=== PATIENT | male | born 1970 | race Caucasian/White ===

== ENCOUNTER 2019-10-30 17:55 | Emergency (ER) | payer OTHER, SELFPAY ==
--- NOTE | 2019-10-30 17:59 | WPDEDEXPGENP ---
HPI - General Ped General Chief complaint: Extremity Injury, Lower Stated complaint: R/foot swollen Time Seen by Provider: 10/30/19 18:10 Source: patient and RN notes reviewed Mode of arrival: ambulatory Limitations: no limitations Nursing Documentation: reviewed/agree History of Present Illness HPI narrative: 49-year-old male presents with concern for swollen, tender right foot without injury. Reports history of gout in his right ankle and foot. Reports symptoms felt like his typical gout symptoms approximately 2 to 3 days ago, he tried at home remedies with no relief. Reports swelling, pain, tenderness is moved from his ankle to his foot. Denies any fever, general malaise MD complaint: Swollen foot Related Data Home Medications Medication Instructions Recorded Confirmed amitriptyline 10/30/19 atenolol 10/30/19 lisinopril-hydrochlorothiazide 10/30/19 Allergies Allergy/AdvReac Type Severity Reaction Status Date / Time Penicillins Allergy Intermediate Nausea and Verified 04/22/19 16:47 Vomiting Pediatric Review of Systems : Review of Systems: CONSTITUTIONAL: Denies malaise, chills, sweats, or fever. CARDIOVASCULAR: Denies chest pain, palpitations RESPIRATORY: Denies cough or dyspnea. SKIN: Reports swollen, tender right foot and ankle MUSCULOSKELETAL: Reports right foot and ankle pain and swelling NEUROLOGIC: Denies numbness, weakness. All systems ED: reviewed and negative except as stated PMFSH Comments At time of signature, agree with nursing past medical, surgical, social and family history. There is no relevant family history pertinent to the presenting complaint Pediatric Exam Narrative: Physical exam: GENERAL: Well-appearing, well-nourished, and in no acute distress. HEAD: Normocephalic EYES: PERRLA, conjunctivae clear NECK: Supple. CHEST: Speaks in full sentences. No respiratory distress. HEART: Regular rate and rhythm. Normal and equal peripheral pulses. EXTREMITIES: Right ankle, foot, digits of foot has normal strength and sensation, normal range of motion. 5/5 strength with ankle and digit flexion and extension. Normal sensation with sensitivity to light touch and pain. Edema, tenderness noted to right lateral ankle, dorsal aspect of foot, not involving digits, consistent with gout no open wounds, no skin tenting, no devitalized tissue or atrophy, no trophic changes, no ecchymosis, no obvious deformity, alignment normal, no point tenderness, nearby joints and structures intact. Distal pulses palpable and equal bilaterally, skin warm, dry, pink. Capillary refill less than 3 seconds. SKIN: Warm, dry, no rash. NEURO: Alert and oriented x3. PSYCH: Normal mood and affect General: Limitations: no limitations Course Course Emergency Course: Parent understands and agrees to treatment plan. Anticipatory guidance given. Parent agrees to follow-up as directed and understands reasons follow-up with primary care provider or to go the emergency room Portions of this record may have been created with voice recognition software Vital Signs Vital signs: Vital Signs Temperature 98.1 F 10/30/19 18:07 Pulse Rate 99 10/30/19 18:07 Respiratory Rate 18 10/30/19 18:07 Blood Pressure 134/100 H 10/30/19 18:07 Pulse Oximetry 99 10/30/19 18:07 Temperature 98.1 F 10/30/19 18:07 Pulse Rate 99 10/30/19 18:07 Respiratory Rate 18 10/30/19 18:07 Blood Pressure 134/100 H 10/30/19 18:07 Pulse Oximetry 99 10/30/19 18:07 Reviewed. Patient has history of hypertension Medical Decision Making MDM Narrative Medical decision making narrative: Exam findings show no acute concerns or changes; patient is non-toxic appearing and is in no distress. Patient is appropriate for outpatient treatment and follow-up. Vital Signs Vital Signs: Vital Signs Temperature 98.1 F 10/30/19 18:07 Pulse Rate 99 10/30/19 18:07 Respiratory Rate 18 10/30/19 18:07 Blood Pressure 134/100 H 10/30/19
[2019-10-30 18:07] VITALS: BP 134/100; PULSE 99; RESP 18; TEMP 36.7; O2SAT 99
== END 2019-10-30 18:26 | disposition home or self-care (01) ==
PROVIDERS: Emergency Provider Nurse Practitioner
DX: M10.9 Gout, unspecified (principal); M10.471 Other secondary gout, right ankle and foot; I10 Essential (primary) hypertension
CPT/HCPCS: 99213; G0463